=== PATIENT | female | born 1985 | race Caucasian/White ===

== ENCOUNTER 2016-06-02 21:22 | Emergency (ER) | payer SELFPAY ==
[2016-06-02 23:02] LABS: BASOPHIL % 0.4 % (0-2); PLATELET COUNT 196 x10^3mcL (130-400); RED CELL DISTRIBUTION WIDTH 15.3 % (11.5-14.5)
[2016-06-02 23:14] LABS: CARBON DIOXIDE 26.4 mmol/L (21-32); CREATININE SERUM 1.2 mg/dL (0.6-1.0); POTASSIUM SERUM 3.8 mmol/L (3.5-5.1)
[2016-06-02 23:18] LABS: ALBUMIN 3.4 g/dL (3.4-5.0); BILIRUBIN TOTAL 0.31 mg/dL (0.20-1.00); TOTAL PROTEIN, SERUM 7.2 g/dL (6.4-8.2)
[2016-06-03 00:59] VITALS: BP 122/70
== END 2016-06-03 00:59 | disposition home or self-care (01) ==
LOC: ED 21:22
PROVIDERS: Emergency Medicine
DX: R10.13 Epigastric pain (principal); R11.2 Nausea with vomiting, unspecified; Z98.51 Tubal ligation status
CPT/HCPCS: J2270; J2405; J7030; Q0092

== ENCOUNTER 2018-05-24 09:03 | Emergency (ER) | payer SELFPAY ==
[~2018-05-24] VITALS: Ht 157.5 cm; Wt 69.9 kg
[2018-05-24 09:15] VITALS: Ht 157.5 cm; Wt 69.9 kg
[2018-05-24 09:28] VITALS: BP 129/65
== END 2018-05-24 11:55 | disposition home or self-care (01) ==
LOC: ED 09:03
DX: J02.9 Acute pharyngitis, unspecified (principal); J40 Bronchitis, not specified as acute or chronic; R51 Headache
CPT/HCPCS: J7512

== ENCOUNTER 2018-09-15 06:37 | Emergency (ER) | payer SELFPAY ==
[~2018-09-15] VITALS: Ht 160 cm; Wt 69.9 kg
[2018-09-15 06:43] VITALS: Ht 160 cm; Wt 69.9 kg
[2018-09-15 07:50] LABS: BASOPHIL % 0.5 % (0-2); PLATELET COUNT 192 x10^3mcL (130-400)
[2018-09-15 07:56] LABS: RED CELL DISTRIBUTION WIDTH 16.9 % (11.5-14.5)
[2018-09-15 08:08] LABS: ALBUMIN 3.5 g/dL (3.4-5.0); ALKALINE PHOSPHATASE 71 U/L (46-116); ALT/SGPT 26 U/L (14-59); AST/SGOT 16 U/L (15-37); BILIRUBIN TOTAL 0.1 mg/dL (0.20-1.00); CALCIUM 8.5 mg/dL (8.5-10.1); CARBON DIOXIDE 23.9 mmol/L (21-32); CHLORIDE SERUM 107 mmol/L (98-107); CHOLESTEROL 185 mg/dL (<200); GLUCOSE SERUM 102 mg/dL (74-106); MAGNESIUM 2.1 mg/dL (1.8-2.4); POTASSIUM SERUM 4.3 mmol/L (3.5-5.1); SODIUM SERUM 141 mmol/L (136-145); TOTAL PROTEIN, SERUM 7.5 g/dL (6.4-8.2)
[2018-09-15 08:54] LABS: CREATININE SERUM 0.7 mg/dL (0.6-1.0); GFR1 > 60 mL/min; HDL CHOLESTEROL 57 mg/dL (40-60)
[2018-09-15 13:54] VITALS: BP 110/60
== END 2018-09-15 14:40 | disposition short-term general hospital (02) ==
LOC: ED 06:37
PROVIDERS: Emergency Medicine
DX: G45.9 Transient cerebral ischemic attack, unspecified (principal); R20.9 Unspecified disturbances of skin sensation
CPT/HCPCS: J1200; J2405; Q0092

== ENCOUNTER 2018-12-12 19:07 | Emergency (ER) | payer SELFPAY ==
[~2018-12-12] VITALS: Ht 154.9 cm; Wt 70.3 kg
[2018-12-12 19:13] VITALS: Ht 154.9 cm; Wt 70.3 kg
[2018-12-12 21:49] VITALS: BP 122/74
== END 2018-12-12 21:49 | disposition home or self-care (01) ==
LOC: ED 19:07
DX: S40.261A Insect bite (nonvenomous) of right shoulder, initial encounter (principal); W57.XXXA Bitten or stung by nonvenomous insect and other nonvenomous arthropods, initial encounter; Y93.89 Activity, other specified; Y92.89 Other specified places as the place of occurrence of the external cause; Y99.8 Other external cause status
CPT/HCPCS: J1885; Q0163

== ENCOUNTER 2019-04-22 10:43 | Emergency (ER) | payer OTHER ==
[~2019-04-22] VITALS: Ht 162.6 cm; Wt 72.1 kg
[2019-04-22 11:07] VITALS: Ht 162.6 cm; Wt 72.1 kg
[2019-04-22 15:05] VITALS: BP 122/71
== END 2019-04-22 15:05 | disposition home or self-care (01) ==
LOC: ED 10:43
DX: H61.21 Impacted cerumen, right ear (principal)
CPT/HCPCS: J1885

== ENCOUNTER 2019-07-10 17:22 | Emergency (ER) | payer OTHER ==
[~2019-07-10] VITALS: Ht 157.5 cm; Wt 70.8 kg
[2019-07-10 17:25] VITALS: Ht 157.5 cm; Wt 70.8 kg
[2019-07-10 18:27] LABS: BASOPHIL % 0.4 % (0-2); PLATELET COUNT 228 x10^3mcL (130-400); RED CELL DISTRIBUTION WIDTH 15.3 % (11.5-14.5)
[2019-07-10 18:32] LABS: CALCIUM 8.5 mg/dL (8.5-10.1); CARBON DIOXIDE 22.5 mmol/L (21-32); CHLORIDE SERUM 104 mmol/L (98-107); CREATININE SERUM 0.7 mg/dL (0.6-1.0); GFR1 > 60 mL/min; GLUCOSE SERUM 94 mg/dL (74-106); POTASSIUM SERUM 3.3 mmol/L (3.5-5.1); SODIUM SERUM 140 mmol/L (136-145)
[2019-07-10 18:36] LABS: microscopic required? YES; urine erythrocyte NEGATIVE (NEGATIVE)
[2019-07-10 18:51] LABS: ALBUMIN 3.7 g/dL (3.4-5.0); ALKALINE PHOSPHATASE 70 U/L (46-116); ALT/SGPT 48 U/L (14-59); AST/SGOT 28 U/L (15-37); BILIRUBIN TOTAL 0.3 mg/dL (0.20-1.00); LIPASE 94 IU/L (73-393); TOTAL PROTEIN, SERUM 7.9 g/dL (6.4-8.2)
[2019-07-10 19:29] VITALS: BP 106/65
== END 2019-07-10 19:29 | disposition home or self-care (01) ==
LOC: ED 17:22
PROVIDERS: Emergency Medicine
DX: E88.89 Other specified metabolic disorders (principal); K21.9 Gastro-esophageal reflux disease without esophagitis; D50.9 Iron deficiency anemia, unspecified
CPT/HCPCS: J2405; J3490; J7030

== ENCOUNTER 2019-08-18 05:57 | Emergency (ER) | payer OTHER ==
[~2019-08-18] VITALS: Ht 160 cm; Wt 73.0 kg
[2019-08-18 06:07] VITALS: Ht 160 cm; Wt 73.0 kg
[2019-08-18 07:44] LABS: BASOPHIL % 0.5 % (0-2); PLATELET COUNT 176 x10^3mcL (130-400)
[2019-08-18 08:02] LABS: ALBUMIN 3.4 g/dL (3.4-5.0); ALKALINE PHOSPHATASE 76 U/L (46-116); ALT/SGPT 65 U/L (14-59); AST/SGOT 46 U/L (15-37); BILIRUBIN TOTAL 0.15 mg/dL (0.20-1.00); CARBON DIOXIDE 24.7 mmol/L (21-32); CHLORIDE SERUM 105 mmol/L (98-107); CREATININE SERUM 0.6 mg/dL (0.6-1.0); GFR1 > 60 mL/min; GLUCOSE SERUM 117 mg/dL (74-106); LIPASE 121 IU/L (73-393); POTASSIUM SERUM 3.8 mmol/L (3.5-5.1); SODIUM SERUM 138 mmol/L (136-145); TOTAL PROTEIN, SERUM 7.4 g/dL (6.4-8.2)
[2019-08-18 08:07] LABS: RED CELL DISTRIBUTION WIDTH 20.4 % (11.5-14.5)
[2019-08-18 08:15] LABS: microscopic required? YES; urine erythrocyte 3+ (NEGATIVE)
[2019-08-18 08:25] LABS: CALCIUM 8.1 mg/dL (8.5-10.1)
[2019-08-18 09:47] VITALS: BP 112/71
== END 2019-08-18 09:47 | disposition home or self-care (01) ==
LOC: ED 05:57
PROVIDERS: Emergency Medicine
DX: R10.9 Unspecified abdominal pain (principal); R11.10 Vomiting, unspecified
CPT/HCPCS: J2405; J7030

== ENCOUNTER 2020-01-29 12:35 | Emergency (ER) | payer OTHER, SELFPAY ==
[~2020-01-29] VITALS: Ht 162.6 cm; Wt 76.2 kg
[2020-01-29 13:00] VITALS: Ht 162.6 cm; Wt 76.2 kg
[2020-01-29 15:33] VITALS: BP 136/75
== END 2020-01-29 15:33 | disposition home or self-care (01) ==
LOC: ED 12:35
DX: F41.9 Anxiety disorder, unspecified (principal); R09.89 Other specified symptoms and signs involving the circulatory and respiratory systems